=== PATIENT | female | born 1975 | race Caucasian/White ===

== ENCOUNTER 2017-12-06 13:08 | Emergency (ER) | payer OTHER, MEDICAID, SELFPAY ==
[2017-12-06 13:16] VITALS: BP 110/71; PULSE 77; RESP 14; TEMP 36.7; O2SAT 99; BMI 25.0
--- NOTE | 2017-12-06 14:36 | ED_ITS ---
HPI - Back Pain/Injury <BRIDGET Park Last Filed: 12/06/17 21:45> General Chief Complaint: Back Pain/Injury Stated Complaint: BACKPAIN WITH PAINS SHOOTING DOWN RIGHT SIDE Time Seen by Provider: 12/06/17 13:19 Source: patient Mode of arrival: ambulatory Limitations: no limitations Related Data Previous Rx's Medication Instructions Recorded diazepam [Valium] 5 mg PO BEDTIME PRN #3 tab 12/06/17 meloxicam [Mobic] 15 mg PO DAILY #14 tab 12/06/17 Allergies Allergy/AdvReac Type Severity Reaction Status Date / Time hydrocodone [From VICODIN] Allergy Unknown HIVES Verified 12/06/17 13:19 Penicillins [PENICILLINS] Allergy Unknown HIVES Verified 12/06/17 13:19 Review of Systems <Anna Sherman PA-C - Last Filed: 12/06/17 21:45> Review of Systems This 42-year-old with a history of intermittent back pain and sciatica comes in due to exacerbation since yesterday. She was bent over plunging the toilet and she felt a pop, then felt pain shooting down her right leg. She states that pain is better at rest, but worse if she bends or twists, also for sitting long periods. When the pain flares up, she describes a pins and needle sensation, also states that her muscles are tight. She denies any other injury. She denies any bowel or bladder changes. She denies any weakness in the extremities or paresthesia aside from the tingling with pain. She denies any possibility of open (had her period less than 2 weeks ago and has been abstinent). She has been taking ibuprofen, using heat and ice. She states that in the past, Valium has helped quite a bit with muscle spasms, would occasionally take a Percocet for flareups. All systems reviewed & are unremarkable except as noted in HPI and below Exam <BRIDGET Park Last Filed: 12/06/17 21:45> Narrative Exam Narrative: GENERAL APPEARANCE: Patient sitting comfortably, in no distress. PULMONARY: Lungs clear to auscultation bilaterally CV: Regular rhythm regular without murmur, normal S1 and S2, no S3 or S4 MUSCULOSKELETAL: No point tenderness over the lumbar spine. Moderately tender and tight over the lower thoracic and lumbar musculature at the mid scapular lines, very tender over the right SI joint, no tenderness over the hips. She has normal trunk flexion, reduced range of motion in other peoples secondary to tenderness. Lower extremity strength 5/5 bilateral hip flexors, knee extensors , foot plantar flexion. Positive right modified straight leg raise, negative on the left NEUROLOGIC: Bilateral patellar and Achilles DTRs 2+, lower extremity sensation grossly intact Course <Anna Sherman PA-C - Last Filed: 12/06/17 21:45> Orders Ordered: Discontinued Medications Oxycodone/Acetaminophen (Percocet 5/325) 1 tab PO NOW ONE Stop: 12/06/17 15:00 Last Admin: 12/06/17 15:14 Dose: 1 tab Last Vital Signs Temp 98.1 F 12/06/17 13:16 Pulse 77 12/06/17 13:16 Resp 14 12/06/17 13:16 BP 110/71 12/06/17 13:16 Pulse Ox 99 12/06/17 13:16 <Piotr Nickerson DO - Last Filed: 12/10/17 07:07> Orders Ordered: Discontinued Medications Oxycodone/Acetaminophen (Percocet 5/325) 1 tab PO NOW ONE Stop: 12/06/17 15:00 Last Admin: 12/06/17 15:14 Dose: 1 tab Last Vital Signs Temp 98.1 F 12/06/17 13:16 Pulse 77 12/06/17 13:16 Resp 14 12/06/17 13:16 BP 110/71 12/06/17 13:16 Pulse Ox 99 12/06/17 13:16 Discharge Plan Departure Patient Disposition: Home, Self-Care Clinical Impression: Sciatica, Sacroiliac joint dysfunction Discharge Date/Time: 12/06/17 15:40 Interventions: ED Discharge Assessment Last Done: 12/06/17 15:38 Instructions: DI for Back Pain With Sciatica, DI Sacroiliac Joint Dysfunction Activity Restrictions/Additional Instructions: You should return as we talked about if you have any acutely worsening symptoms. Otherwise, start the once daily anti-inflammatory. You can take the Valium for a few night if needed for muscle pain and spasm. Continue heat and ice. You should call your insurance to get set up with a PCP for follow-up and a referral to physical therapy to help with your chronic back pain and strain. This time, you have sacroiliac joint irritation on top of your usual sciatica and I think these things have cause muscle tightness. Hopefully physical therapy can help improve these things for you and prevent flare-ups in the future Prescriptions: New meloxicam [Mobic] 15 mg tablet 15 mg PO DAILY Qty: 14 RF: 0 diazepam [Valium] 5 mg tablet 5 mg PO BEDTIME PRN (Reason: spasm) Qty: 3 RF: 0 <Piotr Nickerson DO - Last Filed: 12/10/17 07:07> [facility] Attestation: I was available for consultation during this patient's emergency department encounter
[2017-12-06] MEDS: OXYCODONE/ACETAMINOPHEN 5/325 TABLET 1 TAB PO (15:14)
== END 2017-12-06 15:40 | disposition home or self-care (01) ==
PROVIDERS: Emergency Provider Internal Medicine
DX: M54.30 Sciatica, unspecified side (principal); M53.3 Sacrococcygeal disorders, not elsewhere classified
CPT/HCPCS: 99282

== ENCOUNTER 2018-03-01 10:56 | Emergency (ER) | payer OTHER, MEDICAID, SELFPAY ==
[2018-03-01 11:03] VITALS: BP 124/69; PULSE 85; RESP 15; TEMP 36.7; O2SAT 94; BMI 23.3
[2018-03-01 11:37] LABS: Amorphous Sediment Urine 1+; Bacteria Urine Moderate (10-30); Mucus Urine 2+ (Negative); RBC Urine 0-1/HPF (0-5/HPF); Squamous Epithelial Cell Urine 1-5 /HPF; WBC Urine 0-1/HPF (0-5/HPF)
[2018-03-01 11:38] LABS: Culture Indicated Urine Cult Not Indicated
[2018-03-01 11:51] VITALS: BP 102/54; PULSE 68; RESP 12; O2SAT 99
--- NOTE | 2018-03-01 12:09 | ED_ITS ---
HPI - Female Genitourinary General Chief complaint: Urogenital-Female Stated complaint: feet/hands swollen,dizzy Time Seen by Provider: 03/01/18 12:06 Source: patient Mode of arrival: ambulatory Limitations: no limitations History of Present Illness HPI Narrative: This 42-year-old female complains of 2 day history of ?dizziness? . She states that this occurs after she lays down for a long time, than when she initially stands up she will have a spinning sensation. She states that this does get better after she has been up and in 1 position for few minutes. She states she has not been ill with any recent upper respiratory symptoms such as sinus pain or cough. Not having headache or vision change. She states that she has not had nausea or vomiting nor any chest discomfort or dyspnea. She has been going about her usual activities including working. She states that she has also noted swelling and a lot of stiffness, mainly in her hands and feet for over a week. Her toes get red at times with this. She states that this is somewhat improved actually from a few days ago. It does seem to get worse with a lot of time on her feet but also worse in the morning when she wakes up. She has not noted pain or swelling in other joints but states that she has felt sort of swollen ?all over?. She denies any new rashes or fevers. She denies any recent travel or exposures. Her only other complaint on systems review is sensation of not fully emptying her bladder at times. She denies any dysuria, hematuria, urgency, frequency or other new symptoms. Related Data Home Medications Medication Instructions Recorded Confirmed methadone 95 mg PO DAILY 03/01/18 03/01/18 Previous Rx's Medication Instructions Recorded meclizine 12.5 mg PO Q6HR PRN #14 tab 03/01/18 Allergies Allergy/AdvReac Type Severity Reaction Status Date / Time hydrocodone [From VICODIN] Allergy Unknown HIVES Verified 12/06/17 13:19 Penicillins [PENICILLINS] Allergy Unknown HIVES Verified 12/06/17 13:19 Review of Systems Review of Systems All systems reviewed & are unremarkable except as noted in HPI and below PFSH Medical History History of MRSA infection (Chronic) History of drug abuse (Chronic) History of renal calculi (Chronic) Surgical History Status post dilation and curettage Social History Smoking Status: Current every day smoker Exam Initial Vital Signs Initial Vital Signs: Vital Signs Temperature 98.0 F 03/01/18 11:03 Pulse Rate 85 03/01/18 11:03 Respiratory Rate 15 03/01/18 11:03 Blood Pressure 124/69 H 03/01/18 11:03 Pulse Oximetry 94 03/01/18 11:03 GENERAL APPEARANCE: Patient sitting comfortably, in no distress. EYES: PERRL, EOMI, she has a few beats of horizontal nystagmus EARS: TMs intact with normal light reflexes bilaterally. THROAT: Pharynx normal, uvula midline. LUNGS: Clear to auscultation bilaterally. HEART: Rate and rhythm regular without murmur, normal S1 and S2, no S3 or S4. ABDOMEN: Soft, nontender, nondistended, +bowel sounds x4 quadrants, no CVAT NEUROLOGIC: Alert, oriented, normal speech, and coordination. + Hallpike maneuver with head turned to left. Sensation grossly intact in the extremities EXTREMITIES: No cyanosis, perhaps trace pedal edema, pedal pulses 2+ throughout bilaterally MUSCULOSKELETAL: No joint effusion. She does have trace edema over the feet and toes. +metacarpal and metatarsal squeeze test. No tenderness over other joints Course Additional Information: Patient reported feeling significantly improved in terms of her vertigo. We discussed workup for inflammatory issues and she elected not to have blood testing today as she felt like her joint pain and swelling had improved in the last few days. I did advise that this deserves further workup but could be done as an outpatient. She had somewhat of a sensation of urinary retention with a normal bladder scan. She did not have any other acute urinary symptoms. Orders Ordered: Discontinued Medications Meclizine HCl (Antivert) 25 mg PO NOW ONE Stop: 03/01/18 12:23 Last Admin: 03/01/18 12:36 Dose: 25 mg Vital Signs - 8 hr 03/01/18 13:44 03/01/18 14:07 Pulse Rate 67 71 Respiratory Rate 12 20 Blood Pressure 99/51 L Blood Pressure [Right Arm] 99/52 L Pulse Oximetry 97 99 MDM - Female Genitourinary Lab Data Lab Results 03/01/18 Range/Units 11:05 Urine RBC 0-1/hpf (0-5/HPF) Urine WBC 0-1/hpf (0-5/HPF) Ur Squamous Epith Cells 1-5 /hpf Amorphous Sediment 1+ Urine Bacteria Moderate (10-30) H (None) Urine Mucus 2+ H (Negative) Ur Culture Indicated? Cult not indicated Micro UA Comment Not Reportable Discharge Plan Departure Patient Disposition: Home, Self-Care Clinical Impression: Benign positional vertigo, Joint pain, Pedal edema Discharge Date/Time: 03/01/18 14:10 Interventions: ED Discharge Assessment Last Done: 03/01/18 14:07 Instructions: DI for Benign Paroxysmal Positional Vertigo, DI for Joint Pain Activity Restrictions/Additional Instructions: Please take the prescription meclizine as needed for your vertigo or spinning sensation. Note I have sent in the ?half dose? versus what we gave you here. You should change positions very slowly and avoid moving your head quickly as we talked about. You should avoid driving until you are feeling better and off of the meclizine as it can make you sleepy. As we talked about, this may need further testing or treatment if not getting better on its own over the next few days. Since your joint pain and swelling are a little bit better than a few days ago, it is okay to test these further as an outpatient as is your preference today. You should see a primary care provider for this and determine where to start with testing and whether any type of referral is needed. Please try an over-the -counter anti-inflammatory such as Aleve twice a day to see if this helps with pain, stiffness, and swelling. Your bladder test did not show that you are retaining any significant amount of urine in your bladder today, and since you do not have any other urinary symptoms it does not appear that you need to be treated for an infection. Please return as we talked about if you have any acutely worsening symptoms Prescriptions: New meclizine 12.5 mg tablet 12.5 mg PO Q6HR PRN (Reason: dizziness) Qty: 14 RF: 0 No Action methadone 10 mg Tablet 95 mg PO DAILY RF: 0 Referrals: Dr. Starks, [facility] [Other] [facility] [Provider Group]
[2018-03-01 12:32] VITALS: BP 108/54; PULSE 65; RESP 12
[2018-03-01] MEDS: MECLIZINE HCL 12.5 MG TABLET 25 MG PO (12:36)
[2018-03-01 13:24] VITALS: BP 99/51; PULSE 63; RESP 12; O2SAT 100
[2018-03-01 13:44] VITALS: BP 99/52; PULSE 67; RESP 12; O2SAT 97
--- NOTE | 2018-03-01 13:47 | PC.NURSE ---
Provider re dave. Will dc home with script for meds
[2018-03-01 14:07] VITALS: BP 99/51; PULSE 71; RESP 20; O2SAT 99
--- NOTE | 2018-03-01 14:09 | PC.NURSE ---
Pt wants wrist brace as lost hers
== END 2018-03-01 14:10 | disposition home or self-care (01) ==
PROVIDERS: Emergency Medicine; Emergency Provider Internal Medicine
DX: H81.10 Benign paroxysmal vertigo, unspecified ear (principal); M25.50 Pain in unspecified joint; R60.0 Localized edema
CPT/HCPCS: 51798; 81003; 81015; 81025; 99283

== ENCOUNTER 2019-05-03 10:35 | Emergency (ER) | payer MEDICAID, SELFPAY ==
[2019-05-03 10:50] VITALS: BP 109/70; PULSE 64; RESP 18; TEMP 36.9; O2SAT 99; BMI 22.4
--- NOTE | 2019-05-03 11:53 | ED_ITS ---
HPI - Dental/Oral <ALBERT Cates - Last Filed: 05/03/19 19:32> General Chief complaint: Dental/Oral Stated complaint: toothache Time Seen by Provider: 05/03/19 11:32 Source: patient Mode of arrival: Ambulatory Limitations: no limitations History of Present Illness HPI Narrative: The patient is a 43-year-old female current smoker with history of vertigo who presents with a chief complaint of tooth pain. She states that her right lower tooth has been hurting for the past 3 days. She complains of low-grade subjective fevers, denies any nausea vomiting or diarrhea. She states that she has been using Tylenol and for the pain. She states that she has a broken tooth on that side, she is concerned about a dental infection. She has made an appointment for her dentist in 10 days. She is requesting antibiotics. Related Data Home Medications Medication Instructions Recorded Confirmed methadone 95 mg PO DAILY 03/01/18 03/01/18 Previous Rx's Medication Instructions Recorded meclizine 12.5 mg PO Q6HR PRN #14 tab 03/01/18 clindamycin HCl 300 mg PO Q6H #40 cap 05/03/19 ketorolac 10 mg PO TID #15 tab 05/03/19 Allergies Allergy/AdvReac Type Severity Reaction Status Date / Time hydrocodone [From VICODIN] Allergy Unknown HIVES Verified 05/03/19 10:54 Penicillins [PENICILLINS] Allergy Unknown HIVES Verified 05/03/19 10:54 Review of Systems <UJ Cates- - Last Filed: 05/03/19 19:32> Review of Systems Narrative: GENERAL: Denies chills, fatigue, malaise, fever, sweats. HEENT: See HPI RESPIRATORY: Denies dyspnea, cough, wheezing, hemoptysis, sputum. CARDIOVASCULAR: Denies chest pain, palpitations, orthopnea, edema, GASTROINTESTINAL: Denies nausea, vomiting, abdominal pain, diarrhea, constipation, melena. : Denies dysuria, frequency, incontinence, hematuria, urinary retention. MUSCULOSKELETAL: denies weakness, joint pain, or bony pain SKIN: Denies rash, skin lesions, or other NEUROLOGIC: Denies weakness, headache, numbness, change in speech, confusion, seizures, incoordination. PSYCHIATRIC: No concerning psychosocial issues. 12 point review of systems is negative except for those stated above Patient History <KALPESH Cates - Last Filed: 05/03/19 19:32> Medical History Medical History History of drug abuse (Chronic) History of MRSA infection (Chronic) History of renal calculi (Chronic) Surgical History Surgical History Status post dilation and curettage Social History Smoking Status: Current every day smoker Social History Social History Smoking Status: Current every day smoker alcohol intake frequency: 0-2 drinks per day Substance Use Type: does not use Exam <KALPESH Caets - Last Filed: 05/03/19 19:32> Narrative Exam Narrative: GENERAL: This is a well-nourished, well-developed patient, in no acute distress HEAD: Atraumatic. Normocephalic. No temporal or scalp tenderness. EYES: Pupils equal round and reactive. Extraocular motions intact. No scleral icterus. No injection or drainage. ENT: Nose without bleeding, purulent drainage or septal hematoma. Throat without erythema, tonsillar hypertrophy or exudate. Uvula midline. Airway patent. First lower right molar with surrounding erythema. No palpable abscess. NECK: Trachea midline. No JVD or lymphadenopathy. Supple, nontender, no meningeal signs. CARDIOVASCULAR: Regular rate and rhythm without murmurs, gallops, or rubs. RESPIRATORY: Clear to auscultation. Breath sounds equal bilaterally. No wheezes, rales, or rhonchi. No cough. No increased respiratory effort. No accessory muscle use. GASTROINTESTINAL: Abdomen soft, non-tender, nondistended. No hepato- splenomegaly, or palpable masses. No guarding. EXTREMITIES: No clubbing, cyanosis, or edema. No joint tenderness, effusion, or edema noted. BACK: Nontender without deformity or crepitance. No flank tenderness. NEURO: AOx3. SKIN: No rash or erythema on overlying or visible skin Initial Vital Signs Initial Vital Signs: Vital Signs Temperature 98.5 F 10/11/19 10:50 Pulse Rate 64 05/03/19 10:50 Respiratory Rate 18 05/03/19 10:50 Blood Pressure 109/70 05/03/19 10:50 Pulse Oximetry 99 05/03/19 10:50 <Alejandro Hutson DO - Last Filed: 05/03/19 20:44> Initial Vital Signs Initial Vital Signs: Vital Signs Temperature 98.5 F 05/03/19 10:50 Pulse Rate 64 05/03/19 10:50 Respiratory Rate 18 05/03/19 10:50 Blood Pressure 109/70 05/03/19 10:50 Pulse Oximetry 99 05/03/19 10:50 Course <KALPESH Cates - Last Filed: 05/03/19 19:32> Orders Ordered: Discontinued Medications Ketorolac Tromethamine (Toradol) 60 mg IM NOW ONE Stop: 05/03/19 11:39 Last Admin: 05/03/19 12:11 Dose: 60 mg Documented by: RADHA Vital Signs Vital signs: Vital Signs - 8 hr 05/03/19 12:27 Pulse Rate 70 Respiratory Rate 12 Blood Pressure [Left Arm] 122/80 Pulse Oximetry 100 <Alejandro Hutson DO - Last Filed: 05/03/19 20:44> Orders Ordered: Discontinued Medications Ketorolac Tromethamine (Toradol) 60 mg IM NOW ONE Stop: 05/03/19 11:39 Last Admin: 05/03/19 12:11 Dose: 60 mg Documented by: RADHA Vital Signs Vital signs: Vital Signs - 8 hr 05/03/19 12:27 Pulse Rate 70 Respiratory Rate 12 Blood Pressure [Left Arm] 122/80 Pulse Oximetry 100 MDM - Dental/Oral <KALPESH Cates - Last Filed: 05/03/19 19:32> Lab Data Labs: Point of Care Testing Test Results Negative MDM Narrative Medical decision making narrative: The patient is a 43-year-old female presents with a chief complaint of dental pain. She is given an injection of Toradol in the emergency department I gave her a prescription of Toradol with strict instructed to not combine it with any other NSAIDs such as Aleve ibuprofen. Given that the patient has a penicillin allergy, started on clindamycin for dental infection. Encouraged taking it with yogurt or probiotic. Discussed at length the importance of follow-up with PCP as well as her dentist. Encouraged to keeping that dental appointment. Patient has no questions or concerns upon discharge and states understanding of follow-up care as well as return precautions including fever, inability keep down fluids etc. <Alejandro Haresh, - Last Filed: 05/03/19 20:44> Lab Data Labs: Point of Care Testing Test Results Negative Discharge Plan Departure Patient Disposition: Home Clinical Impression: Dental infection Discharge Date/Time: 05/03/19 12:31 Instructions: Tooth Abscess, DI for Dental Pain Activity Restrictions/Additional Instructions: Your exam is concerning for a dental infection. I have started you on an antibiotic called clindamycin. I encourage you to take it with probiotic or yogurt. I have also given her prescription of pain medication call ketorolac. Do not combine this with any other NSAIDs such as Aleve or ibuprofen. Please come back to the emergency department for any acute concerns such as inability keep down fluids. Please follow up with your dentist as scheduled Prescriptions: New ketorolac 10 mg tablet 10 mg PO TID Qty: 15 RF: 0 clindamycin HCl 300 mg capsule 300 mg PO Q6H Qty: 40 RF: 0 No Action methadone 10 mg Tablet 95 mg PO DAILY RF: 0 meclizine 12.5 mg tablet 12.5 mg PO Q6HR PRN (Reason: dizziness) Qty: 14 RF: 0
[2019-05-03] MEDS: KETOROLAC 60 MG/2 ML VIAL IM (12:11)
[2019-05-03 12:27] VITALS: BP 122/80; PULSE 70; RESP 12; O2SAT 100
== END 2019-05-03 12:31 | disposition home or self-care (01) ==
PROVIDERS: Emergency Provider Nurse Practitioner Family
DX: K04.7 Periapical abscess without sinus (principal)
CPT/HCPCS: 81025; 96372; 99282; 99283; J1885